=== PATIENT | male | born 1985 | race Caucasian/White ===

== ENCOUNTER 2017-07-08 11:14 | Emergency (ER) | payer BC ==
[~2017-07-08] VITALS: Ht 177.8 cm; Wt 72.7 kg
[2017-07-08] MEDS ORDERED: PRED20TA PO (11:22)
[2017-07-08] MEDS ORDERED: ONDANSETRON 4MG/2ML VIAL (J2405) IV ONE (11:45)
[2017-07-08] MEDS ORDERED: NS 1,000 ML IV ONE (11:45)
[2017-07-08] MEDS ORDERED: MORPHINE 4 MG/ML 1ML SYRINGE IV ONE ×2 (11:45→13:15)
[2017-07-08 12:12] LABS: BASO % 0.5 % (0.0-1.0); EOS # 0.1 10^3/uL (0.0-0.50); EOS % 1.5 % (0.0-3.0); IMMATURE GRANULOCYTE % 0.3 % (0-0); LYMPH # 0.9 10^3/uL (1.5-4.5); LYMPH % 14.8 % (24.0-44.0); MEAN CORPUSCULAR HEMOGLOBIN 29.9 pg (27.0-33.0); MEAN CORPUSCULAR HGB CONC 34.1 g/dl (32.0-36.5); MEAN CORPUSCULAR VOLUME 87.8 fl (80.0-96.0); MONO # 0.2 10^3/uL (0.0-0.8); MONO % 3.4 % (0.0-5.0); NEUTROPHILS # 4.6 10^3/uL (1.8-7.7); NEUTROPHILS % 79.5 % (36.0-66.0); PLATELET COUNT, AUTOMATED 204 10^3/uL (150-450); RED CELL DISTRIBUTION WIDTH 12.3 % (11.5-14.5); WHITE BLOOD COUNT 5.8 10^3/uL (4.0-10.0)
[2017-07-08 12:39] LABS: ALBUMIN 4.7 GM/DL (3.2-5.2); ALBUMIN/GLOBULIN RATIO 1.62 (1.00-1.93); ALKALINE PHOSPHATASE 69 U/L (45-117); ALT/SGPT 25 U/L (12-78); ANION GAP 6 MEQ/L (8-16); AST/SGOT 11 U/L (15-37); BILIRUBIN,DIRECT 0.2 MG/DL (0.0-0.2); BILIRUBIN,TOTAL 0.5 MG/DL (0.2-1.0); BLOOD UREA NITROGEN 14 MG/DL (7-18); CALCIUM LEVEL 9.2 MG/DL (8.5-10.1); CARBON DIOXIDE LEVEL 28 MEQ/L (21-32); CHLORIDE LEVEL 106 MEQ/L (98-107); CREATININE FOR GFR 0.89 MG/DL (0.70-1.30); GLOMERULAR FILTRATION RATE > 60.0 (>60); GLUCOSE, FASTING 93 MG/DL (70-105); POTASSIUM SERUM 4.3 MEQ/L (3.5-5.1); SODIUM LEVEL 140 MEQ/L (136-145); TOTAL PROTEIN 7.6 GM/DL (6.4-8.2)
[2017-07-08] MEDS ORDERED: ISOVUE-370 76% 100ML VIAL (Q9967) As Ordered ONE (12:52)
--- NOTE | 2017-07-08 13:43 | REP ---
CT of the abdomen and pelvis with IV contrast, without bowel contrast: Comparison is 04/21/2017. The visualized lung odonnell are unremarkable and unchanged. The hepatic parenchyma, gallbladder, pancreas and spleen are normal size, unremarkable and unchanged. The adrenals, kidneys and abdominal aorta are read The bowel and mesentery are changed except for a surgical staple line in the cecum, unchanged from the prior study. Previously there was wall thickening of the terminal ileum. This wall thickening is no longer present, however, there is now focal distension of the terminal ileum as an interval change. The remainder of the small bowel is nondistended. The previous wall thickening of the distal transverse colon, descending colon and sigmoid colon has resolved. However, there is now wall thickening of the rectosigmoid colon, not present previously. This is compatible with colitis in the appropriate clinical setting. The bladder is distended but otherwise unremarkable. There is no adenopathy or ascites. Impression: There is no evidence of bowel obstruction. There is distension without wall thickening of the terminal ileum. This is nonspecific. There is wall thickening of the rectosigmoid colon compatible with colitis in the appropriate clinical setting. There is no ascites or adenopathy. Signed by Brando Armstrong MD 07/08/2017 01:35 P
[2017-07-08 14:46] VITALS: BP 115/67
== END 2017-07-08 14:51 | disposition left against medical advice (07) ==
LOC: M ED 11:14
DX: K52.9 Noninfective gastroenteritis and colitis, unspecified (principal); K92.2 Gastrointestinal hemorrhage, unspecified
CPT/HCPCS: 36415; 74177; 80048; 80076; 81001; 85025; 86850; 86900; 86901; 87086; 96374; 96375; 96376; 99283; J2405; Q9967

== ENCOUNTER 2018-04-02 10:58 | Emergency (ER) | payer BC ==
[2018-04-02] MEDS: LIDOCAINE 2% MDV 20 ML VIAL SC (11:30)
[2018-04-02] MEDS: CIPROFLOXACIN 500 MG TAB PO (11:38)
[2018-04-02] MEDS: metroNIDAZOLE (FLAGYL) 500 MG TAB PO (11:38)
[2018-04-02] MEDS: NORCO, ANEXSIA 5/325MG TABLET (HYDROcodone/ACETAMINOPHEN) PO (11:38)
== END 2018-04-02 12:44 | disposition home or self-care (01) ==
LOC: M ED 10:58
DX: K61.0 Anal abscess (principal); K62.89 Other specified diseases of anus and rectum; K50.90 Crohn's disease, unspecified, without complications
CPT/HCPCS: 87186

== ENCOUNTER 2020-11-21 21:34 | Emergency (ER) | payer BC ==
[~2020-11-21] VITALS: Ht 177.8 cm; Wt 70.9 kg
[~2020-11-21 21:34] MED LIST: CIPR-249 PO; COLA100C5 PO; FLAG500T PO; HYDR-3715 PO; PRED20TA PO
[2020-11-21] MEDS ORDERED: ONDA8TAB8 (21:46)
[2020-11-21] MEDS ORDERED: DICY10CA13 (21:46)
[2020-11-21] MEDS ORDERED: AMIT75TA PO (21:46)
[2020-11-21] MEDS ORDERED: ONDANSETRON 4MG/2ML VIAL IV ONE (22:35)
[2020-11-21] MEDS ORDERED: KETOROLAC 30 MG/ML 1ML VIAL IV ONE (22:35)
[2020-11-21] MEDS ORDERED: NS 1,000 ML IV ONE (22:35)
[2020-11-21 22:49] LABS: BASO % 0.1 % (0.0-1.0); EOS % 0.1 % (0.0-3.0); HEMATOCRIT 42.8 % (42.0-52.0); HEMOGLOBIN 14.2 g/dl (13.5-17.5); LYMPH # 0.6 10^3/uL (1.5-5.0); LYMPH % 6.4 % (24.0-44.0); MEAN CORPUSCULAR HEMOGLOBIN 28.5 pg (27.0-33.0); MEAN CORPUSCULAR HGB CONC 33.2 g/dl (32.0-36.5); MEAN CORPUSCULAR VOLUME 85.8 fl (80.0-96.0); MONO # 0.1 10^3/uL (0.0-0.8); MONO % 1.3 % (2.0-8.0); NEUTROPHILS # 8.2 10^3/uL (1.5-8.5); NEUTROPHILS % 91.8 % (36.0-66.0); PLATELET COUNT, AUTOMATED 258 10^3/uL (150-450); RED BLOOD COUNT 4.99 10^6/uL (4.30-6.10); WHITE BLOOD COUNT 8.9 10^3/uL (4.0-10.0)
[2020-11-21 23:29] LABS: ALBUMIN 3.4 GM/DL (3.2-5.2); ALT/SGPT 27 U/L (12-78); BILIRUBIN,DIRECT 0.2 MG/DL (0.0-0.2); BILIRUBIN,TOTAL 0.5 MG/DL (0.2-1.0); ETHYL ALCOHOL (ETHANOL) < 0.003 % (0.000-0.010); LIPASE 83 U/L (73-393); TOTAL PROTEIN 6.6 GM/DL (6.4-8.2)
[2020-11-22] MEDS ORDERED: ACETAMINOPHEN 325 MG TAB PO ONE
[2020-11-22 00:04] LABS: AMPHETAMINES LEVEL URINE NEGATIVE (NEGATIVE); BARBITURATES URINE NEGATIVE (NEGATIVE); BENZODIAZEPINES URINE NEGATIVE (NEGATIVE); CANNABINOIDS URINE POSITIVE (NEGATIVE); COCAINE METABOLITE URINE NEGATIVE (NEGATIVE); METHADONE URINE NEGATIVE (NEGATIVE); OPIATES URINE NEGATIVE (NEGATIVE); PHENCYCLIDINE URINE NEGATIVE (NEGATIVE)
--- NOTE | 2020-11-22 00:48 | REPVR ---
PROCEDURE INFORMATION: Exam: US Abdomen, Limited; Right Upper Quadrant Exam date and time: 11/22/2020 12:17 AM Age: 35 years old Clinical indication: Nausea and vomiting; Additional info: N, v, fever, reccent stones TECHNIQUE: Imaging protocol: US abdomen. Real time ultrasound with image documentation. Limited exam focused on the right upper quadrant. COMPARISON: CT ABD/PEL W/IV CONTRAST ONLY 07/08/2017 12:53 PM FINDINGS: Liver: Normal. No masses. Gallbladder: Gallbladder polyp versus nonshadowing wall adherent gallstone. Common bile duct: Normal. No stones. No dilation. Pancreas: Visualized pancreas is unremarkable. Right kidney: Normal. No mass. No hydronephrosis. IMPRESSION: No acute findings. Electronically signed by: Jorge Contreras On 11/22/2020 00:48:49 AM
[2020-11-22] MEDS ORDERED: ZOFR4TAB16 PO (01:02)
[2020-11-22 01:04] VITALS: BP 117/58
--- NOTE | 2020-11-22 01:41 | REPVR ---
PROCEDURE INFORMATION: Exam: XR Chest Exam date and time: 11/22/2020 1:31 AM Age: 35 years old Clinical indication: Other: Hypoxia TECHNIQUE: Imaging protocol: XR of the chest Views: 2 views. COMPARISON: No relevant prior studies available. FINDINGS: Lungs: Unremarkable. No consolidation. Pleural spaces: Unremarkable. No pleural effusion. No pneumothorax. Heart/Mediastinum: Unremarkable. No cardiomegaly. Bones/joints: Unremarkable. IMPRESSION: No acute findings. Electronically signed by: Jorge Contreras On 11/22/2020 01:41:25 AM
== END 2020-11-22 01:57 | disposition home or self-care (01) ==
LOC: M ED 21:34
DX: R11.2 Nausea with vomiting, unspecified (principal); R51.9 Headache, unspecified; R07.0 Pain in throat; R50.81 Fever presenting with conditions classified elsewhere; K51.90 Ulcerative colitis, unspecified, without complications; F17.290 Nicotine dependence, other tobacco product, uncomplicated; F12.10 Cannabis abuse, uncomplicated
CPT/HCPCS: 71046; 76705; 80047; 80076; 80307; 81001; 82077; 83605; 83690; 85025; 87040; 96361; 96374; 96375; 99284; J1885; J2405

== ENCOUNTER 2024-01-13 22:39 | Emergency (ER) | payer BC, SELFPAY ==
[~2024-01-13] VITALS: Ht 177.8 cm; Wt 76.7 kg
[2024-01-13 22:39] VITALS: BP 124/81; TEMP 96.9; O2SAT 97
[~2024-01-13 22:39] MED LIST changes: +AMIT75TA PO; +DICY-61; +ONDA8TAB8; +ZOFR4TAB16 PO
[2024-01-13] MEDS: PROPARACAINE 0.5% OPHTH SOL 15ML OS ONE (23:55)
[2024-01-13] MEDS: FLUORESCEIN OPHTH 1MG STRIP OS ONE (23:55)
[2024-01-14] MEDS: ERYTHROMYCIN OPHTH OINT OS ONE (00:56)
== END 2024-01-14 00:59 | disposition home or self-care (01) ==
LOC: M ED 22:39
DX: S05.02XA Injury of conjunctiva and corneal abrasion without foreign body, left eye, initial encounter (principal); H57.8A2 Foreign body sensation, left eye; X58.XXXA Exposure to other specified factors, initial encounter; Y92.9 Unspecified place or not applicable; Y93.9 Activity, unspecified; Y99.9 Unspecified external cause status